=== PATIENT | female | born 1950 | race Caucasian/White ===

== ENCOUNTER 2017-08-18 19:30 | Outpatient (CLI) | payer MEDICARE | END 2017-08-18 19:31 | disposition home or self-care (01) | LOC: SLEEPLAB 19:30 | PROVIDERS: ATTEND Family Medicine | DX: G47.33 Obstructive sleep apnea (adult) (pediatric) (principal); F41.9 Anxiety disorder, unspecified; E11.9 Type 2 diabetes mellitus without complications; I10 Essential (primary) hypertension; R06.3 Periodic breathing | CPT/HCPCS: 95810 ==

== ENCOUNTER 2017-12-30 14:11 | Outpatient (CLI) | payer MEDICARE | END 2017-12-30 14:12 | disposition home or self-care (01) | LOC: BICMAMMO 14:11 | PROVIDERS: ATTEND Family Medicine | DX: Z12.31 Encounter for screening mammogram for malignant neoplasm of breast (principal); Z80.3 Family history of malignant neoplasm of breast | CPT/HCPCS: 77063; 77067 ==

== ENCOUNTER 2018-01-29 15:08 | Outpatient (CLI) | payer MEDICARE | END 2018-01-29 15:09 | disposition home or self-care (01) | LOC: BICMRI 15:08 | PROVIDERS: ATTEND Family Medicine | DX: M54.2 Cervicalgia (principal); M48.02 Spinal stenosis, cervical region; M99.81 Other biomechanical lesions of cervical region | CPT/HCPCS: 72141 ==

== ENCOUNTER 2018-02-05 12:57 | Outpatient (CLI) | payer MEDICARE | END 2018-02-05 12:58 | disposition home or self-care (01) | LOC: BICCT 12:57 | PROVIDERS: ATTEND Family Medicine | DX: R91.1 Solitary pulmonary nodule (principal) | CPT/HCPCS: 71250 ==

== ENCOUNTER 2018-03-08 09:25 | Outpatient (CLI) | payer MEDICARE ==
--- NOTE | 2018-03-08 12:12 | MRI ---
CONTRAST ENHANCED MRI CERVICAL SPINE: Date: 03/08/18 HISTORY: Abnormal mri COMPARISON: Noncontrast enhanced MRI cervical spine dated 01/29/18. TECHNIQUE: Multiplanar, multisequence contrast enhanced MRI cervical spine obtained. FINDINGS: Again, an area of signal abnormality is seen at the C5 vertebral level. The rest of the vertebral bod ies do not demonstrate significant degree of enhancement. No other masses or lesions seen. The lesion appears to be confined to the C5 vertebral body. Correlate with bone scan images, which are pending. I do not see definite evidence of other masses or lesions noted. IMPRESSION: No evidence of enhancement seen in the previously noted C5 vertebral body lesion. Correlate with bone scan images and possible follow-up MRI if clinically indicated. POS: [facility]
--- NOTE | 2018-03-08 13:53 | NM ---
BONE SCAN: HISTORY: Patient with abnormal noncontrast-enhanced MRI images cervical spine at C5 level. DOSE: 32.3 mCi of Technetium 99m-MDP. FINDINGS: Anterior and posterior whole body delayed images as well as lateral images cervical spine obtained. Images demonstrate the C5 vertebral body not to demonstrate any area of increased activity on delayed images to suggest an area of active metabolic turnover. This suggests that the C5 level likely is a benign lesion. I do recommend a repeat noncontrast-enhanced MRI of cervical spine in approximately 6 months to confirm stability. Some arthritic changes are seen in both knees. IMPRESSION: C5 level likely is a benign lesion as there is no significant evidence of activity on the bone scan elisa pires. POS: [facility]
== END 2018-03-08 09:26 | disposition home or self-care (01) ==
LOC: NM 09:25
PROVIDERS: ATTEND Family Medicine
DX: R93.8 Abnormal findings on diagnostic imaging of other specified body structures (principal)
CPT/HCPCS: 72142; 78306; 82565; A9503

== ENCOUNTER 2018-07-21 14:39 | Outpatient (CLI) | payer MEDICARE ==
--- NOTE | 2018-07-21 16:23 | BD ---
DEXA BONE DENSITOMETRY: (Dual energy X-ray Absorptiometry) 07/21/18 HISTORY: 68-year-old postmenopausal white female for age-related osteoporosis screening examination. Age of de nopausal 37 years. Height 64 inches. Weight 170 lb. COMPARISON: None available. FINDINGS: The bone mineral density (BMD) is given in grams per square centimeter (g/cm2): LUMBAR SPINE: BMD(g/cm2) T-score Z-score L1: 0.869 -1.1 0.5 L2: 0.899 -1.2 0.6 L3: 0.899 -1.7 0.2 L4: 0.836 -2.0 -0.1 Total: 0.875 -1.6 0.3 HIP: Femoral neck: 0.570 -2.5 -0.9 Total: 0.835 -0.9 0.4 IMPRESSION: 1) The mean bone mineral density of the lumbar spine is osteopenic. Fracture risk is increased. 2) The bone mineral density of the femoral neck is osteoporotic. Fracture risk is high. NORMA Raines POS: [facility]
== END 2018-07-21 14:40 | disposition home or self-care (01) ==
LOC: BICMAMMO 14:39
PROVIDERS: ATTEND Family Medicine
DX: Z13.820 Encounter for screening for osteoporosis (principal); M81.0 Age-related osteoporosis without current pathological fracture; M85.88 Other specified disorders of bone density and structure, other site
CPT/HCPCS: 77080

== ENCOUNTER 2018-08-07 13:33 | Emergency (ER) | payer MEDICARE ==
[2018-08-07] MEDS ORDERED: Adacel (T-DAP) 0.5 ML VIAL ONE (14:31)
[2018-08-07] MEDS ORDERED: Rabies Vaccine Human 2.5 UNITS VIAL IM ONE (15:30)
== END 2018-08-07 16:32 | disposition home or self-care (01) ==
LOC: ERS 13:33
DX: S30.810A Abrasion of lower back and pelvis, initial encounter (principal); E11.9 Type 2 diabetes mellitus without complications; I10 Essential (primary) hypertension; Z79.4 Long term (current) use of insulin; Z79.899 Other long term (current) drug therapy; W54.8XXA Other contact with dog, initial encounter
CPT/HCPCS: 90375; 90471; 90472; 90675; 90715; 96372

== ENCOUNTER → 2018-08-10 | Day surgery (SDC) | payer MEDICARE ==
[~2018-08-10] MED LIST: Rabies Vaccine Human 2.5 UNITS VIAL IM ONE
== END ==
LOC: ER/OP 13:55
DX: Z23 Encounter for immunization (principal); E11.9 Type 2 diabetes mellitus without complications; I10 Essential (primary) hypertension; K21.9 Gastro-esophageal reflux disease without esophagitis; E78.00 Pure hypercholesterolemia, unspecified; Z88.0 Allergy status to penicillin; Z88.2 Allergy status to sulfonamides; Z88.8 Allergy status to other drugs, medicaments and biological substances; Z79.4 Long term (current) use of insulin; Z79.899 Other long term (current) drug therapy
CPT/HCPCS: 90471; 90675

== ENCOUNTER → 2018-08-14 | Day surgery (SDC) | payer MEDICARE | LOC: ER/OP 20:34 | DX: Z23 Encounter for immunization (principal); K21.9 Gastro-esophageal reflux disease without esophagitis; E11.9 Type 2 diabetes mellitus without complications; E78.5 Hyperlipidemia, unspecified; E78.00 Pure hypercholesterolemia, unspecified; I10 Essential (primary) hypertension; Z79.4 Long term (current) use of insulin; Z79.899 Other long term (current) drug therapy; Z88.0 Allergy status to penicillin; Z88.1 Allergy status to other antibiotic agents; Z88.2 Allergy status to sulfonamides; Z88.5 Allergy status to narcotic agent; Z88.8 Allergy status to other drugs, medicaments and biological substances | CPT/HCPCS: 90471; 90675 ==

== ENCOUNTER 2018-10-13 09:02 | Outpatient (CLI) | payer MEDICARE ==
--- NOTE | 2018-10-13 13:22 | MRI ---
MRI NONCONTRAST ENHANCED CERVICAL SPINE: Date: 10-13-18 Comparison: 01-29-18 Technique: Multiplanar, multisequence noncontrast enhanced MRI images were obtained of the cervical s pine. FINDINGS: Images demonstrate the spinal cord to be unremarkable with no evidence of cord masses or lesions. C1-2: Unremarkable. C2-3: There is no evidence of significant central or neural foraminal narrowing. C3-4: There is a mild disc osteophyte complex compressing the thecal sac resulting in mild compressio n of the thecal sac. The neural foramen are patent. C4-5: Minimal right sided C4-5 uncal vertebral osteophyte hypertrophy seen. The central canal are pat ent. C5-6: There is a mild broad based disc bulge. The central canal and neural foramen are patent. C6-7: There is a mild broad based disc bulge compressing the thecal sac resulting in mild central guerline nosis. There is some moderate left C6-7 neural foraminal narrowing due to uncal vertebral osteophyte hypertrophy. The right neural foramen is patent. The area of signal abnormality seen within the C5 vertebral body remains. Signal characteristics are stable and unchanged with no significant growth. 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 Continue with follow up MRI to confirm stability. 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 POS: [facility]
== END 2018-10-13 09:03 | disposition home or self-care (01) ==
LOC: BICMRI 09:02
PROVIDERS: ATTEND Family Medicine
DX: R93.7 Abnormal findings on diagnostic imaging of other parts of musculoskeletal system (principal)
CPT/HCPCS: 72141

== ENCOUNTER 2019-02-28 11:43 | Outpatient (CLI) | payer MEDICARE ==
--- NOTE | 2019-02-28 13:15 | MMO ---
Bilateral MAMMO Bilat Screen [facility]. CLINICAL HISTORY: Patient is 68 years old and is seen for screening. The patient has the following family history of breast cancer: mother. The patient has no personal history of cancer. VIEWS: The views performed were: bilateral craniocaudal with tomosynthesis and bilateral mediolateral oblique with tomosynthesis. FILMS COMPARED: The present examination has been compared to prior imaging studies performed at [facility] on 01/09/2014, 05/08/2015, 07/01/2016 and 12/30/2017. MAMMOGRAM FINDINGS: There are scattered fibroglandular densities. There are stable benign appearing calcifications seen in both breasts. There are no suspicious masses, suspicious calcifications, or new areas of architectural distortion. IMPRESSION: THERE IS NO MAMMOGRAPHIC EVIDENCE OF MALIGNANCY. A ROUTINE FOLLOW-UP MAMMOGRAM IN 1 YEAR IS RECOMMENDED. THE RESULTS OF THIS EXAM WERE SENT TO THE PATIENT. ACR BI-RADS Category 2 - Benign finding MAMMOGRAPHY NOTE: 1. A negative mammogram report should not delay a biopsy if a dominant of clinically suspicious mass is present. 2. Approximately 10% to 15% of breast cancers are not detected by mammography. 3. Adenosis and dense breasts may obscure an underlying neoplasm.
--- NOTE | 2019-02-28 13:56 | CT ---
CT CHEST WITHOUT CONTRAST: Multiple axial tomograms were obtained through the chest without IV enhancement. INDICATION: Followup lung nodule. COMPARISON: Comparison is made to CT chest 02/05/2018 and 05/13/2017. FINDINGS: Mild pleural thickening in the posterior apical regions. Pleural-based nodular opacity in the early childhood ior left apical region shows a small nodular density measuring 5 mm. This is a stable finding. Left lung otherwise clear and unchanged. The subtle ground-glass opacity in the right lower lobe described on prior studies is again seen and is unchanged. A defined nodule is not identified at this location. No suspicious finding or interva l change. Mild stranding along the minor fissure on the right is stable. A small focal area of bronchiectasis in the right apical region is unchanged. Mediastinum shows nonspecific lymph nodes which are stable in appearance. Images through the upper a bdomen are unremarkable. IMPRESSION: The chest findings are stable from prior exam of 02/05/2018. POS: [facility]
== END 2019-02-28 11:44 | disposition home or self-care (01) ==
LOC: BICCT 11:43
PROVIDERS: ATTEND Family Medicine
DX: Z12.31 Encounter for screening mammogram for malignant neoplasm of breast (principal); R91.1 Solitary pulmonary nodule; Z80.3 Family history of malignant neoplasm of breast
CPT/HCPCS: 71250; 77063; 77067

== ENCOUNTER 2019-08-30 07:58 | Outpatient (CLI) | payer MEDICARE ==
--- NOTE | 2019-08-30 09:30 | ULT ---
ULTRASOUND ABDOMEN LIMITED: (RIGHT UPPER QUADRANT) DATE: 08/30/19 TIME: 0817 hours HISTORY: 69-year-old female with elevated liver enzymes. FINDINGS: Gallbladder: Surgically absent. Common duct: 5 mm. Liver: Diffusely increased parenchymal echogenicity and signal dropout in the deep portions. Enlarged . Pancreas: Nonspecific sonographic appearance. Right kidney: No hydronephrosis. IMPRESSION: 1. Hepatic steatosis. 2. Hepatomegaly. 3. Status post cholecystectomy. NORMA Raines POS: [facility]
== END 2019-08-30 07:59 | disposition home or self-care (01) ==
LOC: BICULT 07:58
PROVIDERS: ATTEND Family Medicine
DX: R74.8 Abnormal levels of other serum enzymes (principal); R16.0 Hepatomegaly, not elsewhere classified; K76.0 Fatty (change of) liver, not elsewhere classified; Z90.49 Acquired absence of other specified parts of digestive tract
CPT/HCPCS: 76705

== ENCOUNTER 2021-05-09 12:45 | Outpatient (CLI) | payer MEDICARE | END 2021-05-09 12:46 | disposition home or self-care (01) | LOC: BICMRI 12:45 | PROVIDERS: ATTEND Nurse Practitioner Family | DX: M47.26 Other spondylosis with radiculopathy, lumbar region (principal); M47.27 Other spondylosis with radiculopathy, lumbosacral region; M48.061 Spinal stenosis, lumbar region without neurogenic claudication; M48.07 Spinal stenosis, lumbosacral region | CPT/HCPCS: 72148 ==

== ENCOUNTER 2022-02-28 11:59 | Outpatient (CLI) | payer MEDICARE | END 2022-02-28 12:00 | disposition home or self-care (01) | LOC: BICMRI 11:59 | PROVIDERS: ATTEND Family Medicine | DX: M25.511 Pain in right shoulder (principal); M25.619 Stiffness of unspecified shoulder, not elsewhere classified; M71.9 Bursopathy, unspecified; M75.101 Unspecified rotator cuff tear or rupture of right shoulder, not specified as traumatic ==

== ENCOUNTER 2022-07-01 10:54 | Outpatient (CLI) | payer MEDICARE, OTHER ==
[2022-07-01 13:13] LABS: Hemoglobin 13.6 g/dL (12.0-15.5); Mean Corpuscular HGB CONC 33.7 g/dL (32.0-36.0); Mean Corpuscular Volume 91.8 fl (81.6-98.3); Mean Platelet Volume 12.3 fl (7.4-10.4); Platelet Count 195 10x3/uL (150-450); RBC Distribution Width 13.6 % (11.5-14.5); Red Blood Cell (RBC) Count 4.39 10x6/uL (3.90-5.03)
[2022-07-01 13:22] LABS: INR-International Normal Ratio 1.2; PTT 25.7 sec (22.0-33.0); Prothrombin Time 12.4 sec (9.5-12.1)
[2022-07-01 13:27] LABS: Anion Gap 17 mmol/L (10-20); BUN (Urea Nitrogen) 19 mg/dL (9.8-20.1); Calc. Creatinine Clearance 0 mL/min (70-130); Calcium 9.3 mg/dL (7.8-10.44); Carbon Dioxide 21 mmol/L (23-31); Chloride 106 mmol/L (98-107); Estimated GFR 74; Glucose 121 mg/dL (80-115); Potassium 5.1 mmol/L (3.5-5.1); Sodium 139 mmol/L (136-145)
== END 2022-07-01 10:55 | disposition home or self-care (01) ==
LOC: LABBT 10:54
PROVIDERS: ATTEND Internal Medicine Cardiovascular Disease
DX: Z01.812 Encounter for preprocedural laboratory examination (principal); Z20.822 Contact with and (suspected) exposure to COVID-19
CPT/HCPCS: 80048; 85027; 85610; 85730; 87811

== ENCOUNTER 2022-07-31 05:37 | Day surgery (SDC) | payer MEDICARE ==
[2022-07-30 09:31] VITALS: BMI 32.5
[2022-07-31] MEDS ORDERED: PROPOFOL 20 ML ONE (06:53)
== END 2022-07-31 08:38 | disposition home or self-care (01) ==
LOC: SDC 05:37
PROVIDERS: ATTEND Internal Medicine Cardiovascular Disease
PROC: 5A2204Z Restoration of Cardiac Rhythm, Single (ICD-10-PCS; principal; 2022-07-31)
DX: I48.0 Paroxysmal atrial fibrillation (principal); I48.3 Typical atrial flutter; I08.1 Rheumatic disorders of both mitral and tricuspid valves; I10 Essential (primary) hypertension; E11.9 Type 2 diabetes mellitus without complications; F17.210 Nicotine dependence, cigarettes, uncomplicated; Z79.01 Long term (current) use of anticoagulants; Z79.4 Long term (current) use of insulin; Z79.899 Other long term (current) drug therapy; Z88.0 Allergy status to penicillin; Z88.1 Allergy status to other antibiotic agents; Z88.2 Allergy status to sulfonamides; Z88.5 Allergy status to narcotic agent; Z88.8 Allergy status to other drugs, medicaments and biological substances
CPT/HCPCS: 92960; 93005; 93010; J2704

== ENCOUNTER 2022-09-24 05:43 | Day surgery (SDC) | payer MEDICARE ==
[2022-09-23 09:25] VITALS: BMI 30.9
[2022-09-24] MEDS ORDERED: Protamine Sulfate 50 MG/5 ML VIAL ONE (07:31)
[2022-09-24] MEDS ORDERED: Isoproterenol 0.2 MG/1 ML AMP ONE (07:31)
[2022-09-24] MEDS ORDERED: Heparin 10,000 UNITS/ 10 ML VIAL ONE (07:31)
[2022-09-24] MEDS ORDERED: Heparin 25,000 units/D5W 500 ML ONE (07:31)
[2022-09-24] MEDS ORDERED: FENTANYL 50 MCG/ML 1 ML VIAL ONE ×2 (07:47→10:37)
[2022-09-24] MEDS ORDERED: Midazolam HCl 2 mg/2 ml Vial ONE (07:48)
[2022-09-24] MEDS ORDERED: Glycopyrrolate 0.2 MG/ML 5 ML SYRINGE ONE (07:51)
[2022-09-24] MEDS ORDERED: PHENYLEPHRINE-NS 100 MCG/ML 10 ML SYRINGE ONE (07:51)
[2022-09-24] MEDS ORDERED: Ondansetron PF 4 MG/2 ML Vial ONE (07:51)
[2022-09-24] MEDS ORDERED: PROPOFOL 200 MG/20 ML VIAL ONE (07:51)
[2022-09-24] MEDS ORDERED: Dexamethasone 20 MG/5 ML VIAL ONE (07:51)
[2022-09-24] MEDS ORDERED: Rocuronium Bromide 10 MG/ML (10ML VIAL) ONE (07:51)
[2022-09-24] MEDS ORDERED: NEOSTIGMINE 3 MG/3 ML SYR 3 MG/3 ML SYRINGE ONE (07:51)
[2022-09-24] MEDS ORDERED: Furosemide 40 MG TAB PO PRN (07:53)
[2022-09-24] MEDS ORDERED: Potassium Chloride 20 MEQ TAB PO PRN (07:53)
[2022-09-24] MEDS ORDERED: Meperidine HCl/PF 25 MG/ML VIAL ONE (11:28)
[2022-09-24] MEDS ORDERED: Sucralfate 1 GM TAB PO SCH (11:30)
== END 2022-09-24 16:00 | disposition home or self-care (01) ==
LOC: SDC 05:43
PROVIDERS: ATTEND Internal Medicine Cardiovascular Disease
PROC: B244ZZ3 Ultrasonography of Right Heart, Intravascular (ICD-10-PCS; principal; 2022-09-24)
PROC: 02583ZZ Destruction of Conduction Mechanism, Percutaneous Approach (ICD-10-PCS; 2022-09-24)
PROC: 02K83ZZ Map Conduction Mechanism, Percutaneous Approach (ICD-10-PCS; 2022-09-24)
PROC: 4A023FZ Measurement of Cardiac Rhythm, Percutaneous Approach (ICD-10-PCS; 2022-09-24)
PROC: 4A0234Z Measurement of Cardiac Electrical Activity, Percutaneous Approach (ICD-10-PCS; 2022-09-24)
DX: I48.0 Paroxysmal atrial fibrillation (principal); J44.9 Chronic obstructive pulmonary disease, unspecified; I08.1 Rheumatic disorders of both mitral and tricuspid valves; I10 Essential (primary) hypertension; E11.9 Type 2 diabetes mellitus without complications; F17.210 Nicotine dependence, cigarettes, uncomplicated; Z79.01 Long term (current) use of anticoagulants; Z79.4 Long term (current) use of insulin; Z79.899 Other long term (current) drug therapy; Z88.0 Allergy status to penicillin; Z88.1 Allergy status to other antibiotic agents; Z88.2 Allergy status to sulfonamides; Z88.5 Allergy status to narcotic agent; Z88.8 Allergy status to other drugs, medicaments and biological substances
CPT/HCPCS: 82962; 85347 ×2; 93005; 93623; 93655; 93656; J3010; 36416; 93657; C1732; C1759; C1760; C1769; C1894; J1100; J1644; J2175; J2250; J2405; J2704; J2720

== ENCOUNTER 2022-10-07 11:36 | Emergency (ER) | payer MEDICARE ==
[2022-10-07 12:04] LABS: #Basophils 0.1 thou/uL (0.0-0.2); #Eosinphils 0.1 thou/uL (0.0-0.7); #Monocytes 0.6 thou/uL (0.11-0.59); #Neutrophils 7.7 thou/uL (1.40-6.50); %Basophils 0.7 % (0.0-1.0); %Eosinophils 0.8 % (0.0-10.0); %Monocytes 5.5 % (0.0-10.0); Hemoglobin 15.1 g/dL (12.0-16.0); Mean Corpuscular HGB CONC 32.5 g/dL (32.0-36.0); Mean Corpuscular Hemoglobin 30.3 pg (27.0-31.0); Mean Corpuscular Volume 93.4 fl (78.0-98.0); Mean Platelet Volume 9.4 fL (7.4-10.4); Platelet Count 214 10x3/uL (130-400); RBC Distribution Width 12.9 % (11.5-14.5); Red Blood Cell (RBC) Count 4.98 mill/uL (4.20-5.40); White Blood Cell (WBC) Count 11.4 10x3/uL (4.8-10.8)
[2022-10-07 12:28] LABS: ALT (SGPT) 14 U/L (8-55); AST (SGOT) 15 U/L (5-34); Albumin 4.1 g/dL (3.4-4.8); Alkaline Phosphatase 54 U/L (40-110); Anion Gap 16 mmol/L (10-20); BUN (Urea Nitrogen) 14 mg/dL (9.8-20.1); Bilirubin, Total 0.6 mg/dL (0.2-1.2); Calc. Creatinine Clearance 0 mL/min (70-130); Calcium 9.2 mg/dL (7.8-10.44); Carbon Dioxide 21 mmol/L (23-31); Chloride 103 mmol/L (98-107); Estimated GFR 73; Glucose 241 mg/dL (80-115); Lipase 24 U/L (8-78); Potassium 4.1 mmol/L (3.5-5.1); Protein, Total 7.1 g/dL (5.8-8.1); Sodium 136 mmol/L (136-145)
[2022-10-07] MEDS ORDERED: Flecainide 50 MG TAB PO SCH (12:45)
[2022-10-07 12:47] LABS: CKMB 5.6 ng/mL (0-6.6)
[2022-10-07] MEDS ORDERED: Aspirin Chewable 81 MG TAB ONE (12:55)
[2022-10-07] MEDS ORDERED: Iopamidol-370 76% 500 ML 1 ML ONE (13:08)
[2022-10-07] MEDS ORDERED: PROPOFOL 20 ML ONE (15:00)
== END 2022-10-07 16:00 | disposition home or self-care (01) ==
LOC: ERS 11:36
DX: I48.92 Unspecified atrial flutter (principal); E11.9 Type 2 diabetes mellitus without complications; I10 Essential (primary) hypertension; F17.200 Nicotine dependence, unspecified, uncomplicated; Z79.01 Long term (current) use of anticoagulants; Z79.4 Long term (current) use of insulin
CPT/HCPCS: 71045; 74177; 80053; 82553; 83690; 84484; 85025; 92960; 93005; 96374; 99152; J2704; Q9967

== ENCOUNTER 2023-04-05 19:30 | Outpatient (CLI) | payer MEDICARE | END 2023-04-05 19:31 | disposition home or self-care (01) | LOC: SLEEPLAB 19:30 | PROVIDERS: ATTEND Internal Medicine Critical Care Medicine | DX: G47.33 Obstructive sleep apnea (adult) (pediatric) (principal); G47.61 Periodic limb movement disorder; R06.83 Snoring | CPT/HCPCS: 95810 ==

== ENCOUNTER 2023-10-26 10:54 | Outpatient (CLI) | payer MEDICARE | END 2023-10-26 10:55 | disposition home or self-care (01) | LOC: BICMAMMO 10:54 | PROVIDERS: ATTEND Family Medicine | DX: Z12.31 Encounter for screening mammogram for malignant neoplasm of breast (principal); Z80.3 Family history of malignant neoplasm of breast | CPT/HCPCS: 77063; 77067 ==

== ENCOUNTER 2024-10-14 13:46 | Inpatient (IN) | payer MEDICARE ==
[2024-10-14] MEDS ORDERED: Morphine 2 MG/ML VIAL ONE ×2 (17:10→22:22)
[2024-10-14] MEDS ORDERED: Ondansetron PF 4 MG/2 ML Vial ONE (17:11)
[2024-10-14] MEDS ORDERED: LORazepam 2 MG/ML SYR.(CARPUJECT) ONE (17:11)
[2024-10-14 17:13] LABS: Hematocrit 35.4 % (36.0-47.0); Hemoglobin 11.3 g/dL (12.0-16.0); Mean Corpuscular HGB CONC 31.9 g/dL (32.0-36.0); Mean Corpuscular Hemoglobin 23.1 pg (27.0-31.0); Mean Corpuscular Volume 72.2 fL (78.0-98.0); Mean Platelet Volume 9.8 fL (7.4-10.4); Platelet Count 349 10x3/uL (130-400); RBC Distribution Width 18.5 % (11.5-14.5)
[2024-10-14 17:28] LABS: INR-International Normal Ratio 1.3; Prothrombin Time 16.5 sec (12.0-14.7)
[2024-10-14 17:29] LABS: ALT (SGPT) 14 U/L (Less than 34); AST (SGOT) 30 U/L (11-34); Albumin 3.4 g/dL (3.1-4.5); Alkaline Phosphatase 63 U/L (40-110); Anion Gap 21 mmol/L (10-20); BUN (Urea Nitrogen) 6 mg/dL (9.8-20.1); Bilirubin, Total 0.6 mg/dL (0.3-1.2); Calc. Creatinine Clearance 0 mL/min (70-130); Calcium 7.9 mg/dL (7.8-10.44); Carbon Dioxide 19 mmol/L (23-31); Chloride 99 mmol/L (98-107); Estimated GFR 83; Glucose 156 mg/dL (83-110); Lipase 34 U/L (8-78); PTT 34.3 sec (22.9-36.1); Potassium 3.8 mmol/L (3.5-5.1); Protein, Total 7.1 g/dL (5.8-8.1); Sodium 135 mmol/L (136-145)
[2024-10-14 17:35] LABS: Globulin 3.7 g/dL (2.4-3.5)
[2024-10-14 17:44] LABS: Anisocytosis SLIGHT = 6-15 cells HPF (0-5); Band 6 % (5-11); Large Platelets 8.9 % (0-5); Lymphocytes 6 % (21-51); Microcytosis SLIGHT = 6-15 cells HPF (0-5); Monocytes 1 % (0-10); Neutrophil 86 % (42-75); Platelet Adequacy Comment Platelets Normal; Polychromasia SLIGHT = 2-3 cells HPF (0-2); RBC Morphology Within Normal Limits; Reactive Lymphocytes 1 % (0-10)
[2024-10-14 20:22] LABS: Actual Bicarbonate (HCO3v) 17.6 mEq/L (22-28); Base Excess -7.3 mEq/L (-2.0 to +3.0); Calcium, Ionized (venous) 0.96 mmol/L (1.16-1.32); Chloride (VBG) 97 mmol/L (98-106); Hematocrit-VBG 36 % (36.0-47.0); Hemoglobin (Hb) 12.3 g/dL (11.7-16.1); Potassium (VBG) 3.42 mmol/L (3.70-5.30); Sodium 135 mmol/L (133-146); pH (venous) 7.339 (7.32-7.43)
[2024-10-14] MEDS ORDERED: Ondansetron PF 4 MG/2 ML Vial IVP PRN (22:00)
[2024-10-14 22:53] LABS: Lactic Acid 3.21 mmol/L (0.50-2.20)
[2024-10-14 22:58] LABS: Troponin I 0.068 ng/mL (< 0.028)
[2024-10-15] MEDS: LevoFLOXacin 750 mg/D5W 750 MG in Premix 1 BAG IVPB SCH (00:04)
[2024-10-15] MEDS: Acetaminophen 325 MG TAB PO PRN ×2 (00:06→16:37)
[2024-10-15] MEDS: HYDROcodone/Acetaminophen 10/325 mg Tablet PO SCH (00:06)
[2024-10-15] MEDS: Sodium Chloride 0.9% 1,000 ML IV SCH (00:07)
[2024-10-15] MEDS: Vancomycin (BATCH) 1.75 GM in Premix 1 BAG IVPB SCH (00:07)
[2024-10-15 02:01] LABS: Troponin I 0.044 ng/mL (< 0.028)
[2024-10-15 02:56] VITALS: BMI 27.8
[2024-10-15] MEDS ORDERED: Acetaminophen 650 MG Suppository PR PRN (03:27)
[2024-10-15] MEDS ORDERED: Calcium Carbonate 500 MG ChewTAB PO PRN (03:27)
[2024-10-15 04:49] LABS: #Basophils Less than 0.03 10x3/uL (0.0-0.2); #Eosinophils Less than 0.03 10x3/uL (0.0-0.7); %Basophils 0.2 % (0.0-1.0); %Eosinophils 0.2 % (0.0-10.0); %Monocytes 5.7 % (0.0-10.0); %Neutrophils 82.4 % (42.0-75.0); Hematocrit 31.9 % (36.0-47.0); Hemoglobin 10.1 g/dL (12.0-16.0); Mean Corpuscular HGB CONC 31.7 g/dL (32.0-36.0); Mean Corpuscular Hemoglobin 23.3 pg (27.0-31.0); Mean Corpuscular Volume 73.7 fL (78.0-98.0); Mean Platelet Volume 10.7 fL (7.4-10.4); Platelet Count 290 10x3/uL (130-400); RBC Distribution Width 18.4 % (11.5-14.5); Red Blood Cell (RBC) Count 4.33 mill/uL (4.20-5.40)
[2024-10-15 05:51] LABS: ALT (SGPT) 12 U/L (Less than 34); AST (SGOT) 25 U/L (11-34); Albumin 2.9 g/dL (3.1-4.5); Alkaline Phosphatase 55 U/L (40-110); Anion Gap 14 mmol/L (10-20); BUN (Urea Nitrogen) 6 mg/dL (9.8-20.1); Bilirubin, Total 0.6 mg/dL (0.3-1.2); Calc. Creatinine Clearance 85 mL/min (70-130); Calcium 7.1 mg/dL (7.8-10.44); Carbon Dioxide 19 mmol/L (23-31); Chloride 104 mmol/L (98-107); Estimated GFR 92; Globulin 3.1 g/dL (2.4-3.5); Glucose 159 mg/dL (83-110); Potassium 3.4 mmol/L (3.5-5.1); Sodium 134 mmol/L (136-145)
[2024-10-15 06:22] LABS: Bilirubin Negative (Negative); Blood, Urine Trace (Negative); CAUTI Indications for Culture Fever or rigors; Clarity Turbid (Clear); Glucose, Urine (Dipstick) Normal (Negative); Ketone, Urine Negative (Negative); Leukocyte 500 Leu/uL (Negative); Nitrite 2+ (Negative); Protein, Urine (Dipstick) 10 mg/dL (Neg-Trace); RBC/HPF 0-3 HPF (0-3); Squamous Epithelial 0-3 HPF (0-3); Urobilinogen Normal mg/dL (Less than 2); WBC/HPF Greater than 50 HPF (0-3)
[2024-10-15 06:23] LABS: Bacteria/HPF 1+ HPF (None Seen)
[2024-10-15 06:24] LABS: Urine Culture Reflex Yes Yes
[2024-10-15] MEDS ORDERED: Electrolyte Replacement Protocol 1 EACH FS SCH (08:15)
[2024-10-15] MEDS ORDERED: Electrolyte Replacement Protocol FS PRN (08:15)
[2024-10-15] MEDS ORDERED: Famotidine/PF 20 mg/2ml Vial SLOW IVP SCH (09:00)
[2024-10-15] MEDS ORDERED: FLU (Fluad Triv) TS24-25 (65UP)/MF59C/PF 45 MCG/0.5 ML Syringe IM ONE (09:00)
[2024-10-15] MEDS: Aspirin 325 mg Enteric Coated Tablet PO SCH (09:51)
[2024-10-15] MEDS: Apixaban 5 MG TAB PO SCH (09:51)
[2024-10-15] MEDS: Cefepime 1 GM in Sodium Chloride 0.9% 100 ML IVPB SCH (09:51)
[2024-10-15] MEDS: dilTIAZem CD 180 MG CAP PO SCH (09:51)
[2024-10-15] MEDS: Potassium Chloride 20 MEQ TAB PO SCH (10:04)
[2024-10-15] MEDS: Famotidine 20 MG TAB PO SCH (10:04)
[2024-10-15] MEDS: Morphine 4 MG/ML VIAL SLOW IVP PRN (11:17)
[2024-10-15] MEDS: Ondansetron ODT 4 MG TAB SL PRN (11:18)
[2024-10-15] MEDS: Metoclopramide HCl 10 MG (2 mL) VIAL IVP SCH (16:37)
[2024-10-15] MEDS: ALPRAZolam 0.25 MG TAB PO PRN (20:11)
[2024-10-16] MEDS: Lidocaine 4% Patch TD SCH (03:31)
[2024-10-16 05:18] LABS: #Basophils 0.07 10x3/uL (0.0-0.2); %Basophils 0.7 % (0.0-1.0); %Eosinophils 1.7 % (0.0-10.0); %Lymphocytes 13.4 % (21.0-51.0); %Monocytes 7.5 % (0.0-10.0); %Neutrophils 76.3 % (42.0-75.0); Hematocrit 29.4 % (36.0-47.0); Hemoglobin 9.2 g/dL (12.0-16.0); Mean Corpuscular HGB CONC 31.3 g/dL (32.0-36.0); Mean Corpuscular Hemoglobin 23.6 pg (27.0-31.0); Mean Corpuscular Volume 75.4 fL (78.0-98.0); Mean Platelet Volume 10.1 fL (7.4-10.4); Platelet Count 251 10x3/uL (130-400); RBC Distribution Width 18.6 % (11.5-14.5)
[2024-10-16 07:26] LABS: Anion Gap 15 mmol/L (10-20); BUN (Urea Nitrogen) 8 mg/dL (9.8-20.1); Calc. Creatinine Clearance 83 mL/min (70-130); Calcium 6.9 mg/dL (7.8-10.44); Carbon Dioxide 16 mmol/L (23-31); Chloride 103 mmol/L (98-107); Critical Call Chemistry SAME; Estimated GFR 90; Glucose 180 mg/dL (83-110); Potassium 3.4 mmol/L (3.5-5.1); Sodium 131 mmol/L (136-145)
[2024-10-16] MEDS: Pantoprazole 40 MG DR.TAB PO SCH (08:10)
[2024-10-16] MEDS: Cefepime 1 GM VIAL ONE (08:12)
[2024-10-16] MEDS ORDERED: Morphine 2 MG/ML VIAL SLOW IVP PRN (10:05)
[2024-10-16] MEDS: HYDROcodone/Acetaminophen 5/325 mg Tablet PO SCH (11:39)
[2024-10-16] MEDS: Potassium Chloride 20 MEQ TAB PO SCH (11:39)
[2024-10-16] MEDS: CALCIUM GLUC 1 GM/NS 50 ML 1 GM in Premix 1 BAG IVPB SCH (11:40)
[2024-10-16] MEDS: traMADol HCl 50 MG TAB PO PRN (16:10)
[2024-10-16] MEDS: Transdermal Patch Removal TOP SCH (16:10)
[2024-10-16] MEDS: HYDROcodone/Acetaminophen 5/325 mg Tablet PO PRN (17:02)
[2024-10-16 17:41] LABS: Potassium 3.8 mmol/L (3.5-5.1)
[2024-10-17 05:00] LABS: Anion Gap 15 mmol/L (10-20); BUN (Urea Nitrogen) 6 mg/dL (9.8-20.1); Calc. Creatinine Clearance 88 mL/min (70-130); Calcium 7.2 mg/dL (7.8-10.44); Carbon Dioxide 16 mmol/L (23-31); Chloride 103 mmol/L (98-107); Estimated GFR 93; Glucose 151 mg/dL (83-110); Potassium 3.8 mmol/L (3.5-5.1); Sodium 130 mmol/L (136-145)
[2024-10-17 05:11] LABS: #Basophils 0.06 10x3/uL (0.0-0.2); %Basophils 0.5 % (0.0-1.0); %Eosinophils 2.1 % (0.0-10.0); %Lymphocytes 19.6 % (21.0-51.0); %Monocytes 8.4 % (0.0-10.0); %Neutrophils 68.9 % (42.0-75.0); Hematocrit 32.7 % (36.0-47.0); Hemoglobin 10.3 g/dL (12.0-16.0); Mean Corpuscular HGB CONC 31.5 g/dL (32.0-36.0); Mean Corpuscular Hemoglobin 23.3 pg (27.0-31.0); Platelet Count 297 10x3/uL (130-400); RBC Distribution Width 18.7 % (11.5-14.5); Red Blood Cell (RBC) Count 4.42 mill/uL (4.20-5.40)
[2024-10-17] MEDS ORDERED: Cefepime 2 GM in Sodium Chloride 0.9% 100 ML IVPB SCH (21:00)
[2024-10-18 05:40] LABS: %Basophils 0.9 % (0.0-1.0); %Eosinophils 2.2 % (0.0-10.0); %Lymphocytes 25.6 % (21.0-51.0); %Neutrophils 60.8 % (42.0-75.0); Hematocrit 31.2 % (36.0-47.0); Hemoglobin 9.9 g/dL (12.0-16.0); Mean Corpuscular HGB CONC 31.7 g/dL (32.0-36.0); Mean Corpuscular Hemoglobin 23.5 pg (27.0-31.0); Mean Corpuscular Volume 73.9 fL (78.0-98.0); Mean Platelet Volume 10.5 fL (7.4-10.4); Platelet Count 304 10x3/uL (130-400); RBC Distribution Width 19.2 % (11.5-14.5); Red Blood Cell (RBC) Count 4.22 mill/uL (4.20-5.40)
[2024-10-18 06:01] LABS: Anion Gap 18 mmol/L (10-20); BUN (Urea Nitrogen) 11 mg/dL (9.8-20.1); Calc. Creatinine Clearance 70 mL/min (70-130); Calcium 7.4 mg/dL (7.8-10.44); Carbon Dioxide 17 mmol/L (23-31); Chloride 102 mmol/L (98-107); Estimated GFR 74; Glucose 161 mg/dL (83-110); Potassium 4.3 mmol/L (3.5-5.1); Sodium 133 mmol/L (136-145)
[2024-10-18 11:36] VITALS: BP 112/76; TEMP 97.6
[2024-10-19] MEDS ORDERED: dilTIAZem CD 180 MG CAP PO SCH (09:00)
== END 2024-10-18 15:31 | DRG 871 ==
LOC: ERS 13:46 → 2NO 21:50 → SURG A 10-17 19:48
PROVIDERS: ADMIT Student in an Organized Health Care Education/Training Program; ATTEND Internal Medicine
DX: A41.9 Sepsis, unspecified organism (principal); I21.A1 Myocardial infarction type 2; S72.102A Unspecified trochanteric fracture of left femur, initial encounter for closed fracture; N39.0 Urinary tract infection, site not specified; E87.1 Hypo-osmolality and hyponatremia; E11.9 Type 2 diabetes mellitus without complications; I48.91 Unspecified atrial fibrillation; I10 Essential (primary) hypertension; F17.210 Nicotine dependence, cigarettes, uncomplicated; Z88.0 Allergy status to penicillin; Z88.2 Allergy status to sulfonamides; Z88.5 Allergy status to narcotic agent; Z88.8 Allergy status to other drugs, medicaments and biological substances; Z90.89 Acquired absence of other organs; Z90.49 Acquired absence of other specified parts of digestive tract; Z90.710 Acquired absence of both cervix and uterus; W19.XXXA Unspecified fall, initial encounter
CPT/HCPCS: 36415; 36416; 70450; 71045; 72125; 72192; 80048; 80053; 81001; 82805; 83605; 83690; 84484; 85025; 85610; 85730; 87040; 87086; 93005; J0613; J0692; J1956; J2060; J2270; J2272; J2405; J2765; J3370; Q0162

== ENCOUNTER 2024-11-11 12:01 | Emergency (ER) | payer MEDICARE ==
[2024-11-11] MEDS ORDERED: Magnesium 2 GM/50 ML BAG (IN WATER) ONE (13:25)
[2024-11-11] MEDS ORDERED: Etomidate 40 MG (20 mL) VIAL ONE (13:55)
== END 2024-11-11 15:28 | disposition home or self-care (01) ==
LOC: ERS 12:01
DX: I48.91 Unspecified atrial fibrillation (principal); I10 Essential (primary) hypertension; F17.210 Nicotine dependence, cigarettes, uncomplicated; E11.9 Type 2 diabetes mellitus without complications; Z79.01 Long term (current) use of anticoagulants; Z79.899 Other long term (current) drug therapy
CPT/HCPCS: 93005; J3475; 92960; 96374; 99156

== ENCOUNTER 2025-04-25 18:51 | Observation (INO) | payer MEDICARE ==
[2025-04-25 19:45] LABS: #Basophils 0.07 10x3/uL (0.0-0.2); #Eosinophils 0.13 10x3/uL (0.0-0.7); #Monocytes 0.99 10x3/uL (0.11-0.59); #Neutrophils 7.13 10x3/uL (1.40-6.50); %Basophils 0.6 % (0.0-1.0); %Eosinophils 1.1 % (0.0-10.0); %Lymphocytes 26.8 % (21.0-51.0); %Monocytes 8.7 % (0.0-10.0); %Neutrophils 62.5 % (42.0-75.0); Hematocrit 43.2 % (36.0-47.0); Hemoglobin 14.0 g/dL (12.0-16.0); Mean Corpuscular Hemoglobin 25.0 pg (27.0-31.0); Mean Corpuscular Volume 77.0 fL (78.0-98.0); Platelet Count 309 10x3/uL (130-400); Red Blood Cell (RBC) Count 5.61 mill/uL (4.20-5.40); White Blood Cell (WBC) Count 11.40 10x3/uL (4.8-10.8)
[2025-04-25 20:03] LABS: ALT (SGPT) 15 U/L (Less than 34); AST (SGOT) 23 U/L (11-34); Albumin 3.7 g/dL (3.1-4.5); Alkaline Phosphatase 66 U/L (40-110); Anion Gap 15 mmol/L (10-20); BUN (Urea Nitrogen) 9 mg/dL (9.8-20.1); Bilirubin, Total 0.8 mg/dL (0.3-1.2); Calc. Creatinine Clearance 0 mL/min (70-130); Calcium 8.8 mg/dL (7.8-10.44); Carbon Dioxide 21 mmol/L (23-31); Chloride 98 mmol/L (98-107); Globulin 3.2 g/dL (2.4-3.5); Glucose 132 mg/dL (83-110); Potassium 3.8 mmol/L (3.5-5.1); Sodium 130 mmol/L (136-145)
[2025-04-25 20:07] LABS: Troponin I 0.023 ng/mL (< 0.028)
[2025-04-25 20:27] LABS: Magnesium 0.8 mg/dL (1.6-2.6)
[2025-04-25] MEDS ORDERED: Magnesium 2 GM/50 ML BAG (IN WATER) ONE (21:01)
[2025-04-25] MEDS ORDERED: Apixaban 5 MG TAB ONE (21:09)
[2025-04-25] MEDS ORDERED: diphenhydrAMINE 50 MG/ML VIAL ONE (21:17)
[2025-04-25] MEDS ORDERED: Guaifenesin DM 100-10/5 ML UDCUP PO PRN (21:35)
[2025-04-25] MEDS ORDERED: Ondansetron PF 4 MG/2 ML Vial IVP PRN (21:35)
[2025-04-25] MEDS ORDERED: Melatonin 3 MG TAB PO PRN (21:35)
[2025-04-25] MEDS ORDERED: Acetaminophen 325 MG TAB PO PRN (21:35)
[2025-04-25] MEDS ORDERED: Electrolyte Replacement Protocol 1 EACH FS SCH (21:45)
[2025-04-25] MEDS ORDERED: Glucagon 1 MG/ML KIT IM PRN (22:17)
[2025-04-25] MEDS ORDERED: Dextrose 50% Abboject 50 ML SYRINGE SLOW IVP PRN (22:17)
[2025-04-25 22:53] VITALS: BMI 25.4
[2025-04-25] MEDS: Magnesium Oxide 400 MG TAB PO SCH (22:57)
[2025-04-26 01:22] LABS: Magnesium 1.4 mg/dL (1.6-2.6)
[2025-04-26 04:43] LABS: #Basophils 0.07 10x3/uL (0.0-0.2); #Eosinophils 0.24 10x3/uL (0.0-0.7); #Monocytes 1.10 10x3/uL (0.11-0.59); #Neutrophils 5.69 10x3/uL (1.40-6.50); %Basophils 0.7 % (0.0-1.0); %Eosinophils 2.4 % (0.0-10.0); %Lymphocytes 27.9 % (21.0-51.0); %Monocytes 11.1 % (0.0-10.0); %Neutrophils 57.7 % (42.0-75.0); Hematocrit 40.0 % (36.0-47.0); Hemoglobin 12.8 g/dL (12.0-16.0); Mean Corpuscular Hemoglobin 25.1 pg (27.0-31.0); Mean Corpuscular Volume 78.6 fL (78.0-98.0); Platelet Count 249 10x3/uL (130-400); Red Blood Cell (RBC) Count 5.09 mill/uL (4.20-5.40); White Blood Cell (WBC) Count 9.87 10x3/uL (4.8-10.8)
[2025-04-26 04:53] LABS: ALT (SGPT) 12 U/L (Less than 34); AST (SGOT) 24 U/L (11-34); Albumin 3.2 g/dL (3.1-4.5); Alkaline Phosphatase 58 U/L (40-110); Anion Gap 13 mmol/L (10-20); BUN (Urea Nitrogen) 8 mg/dL (9.8-20.1); Bilirubin, Total 0.8 mg/dL (0.3-1.2); Calc. Creatinine Clearance 76 mL/min (70-130); Calcium 8.7 mg/dL (7.8-10.44); Carbon Dioxide 26 mmol/L (23-31); Chloride 97 mmol/L (98-107); Globulin 2.8 g/dL (2.4-3.5); Glucose 119 mg/dL (83-110); Potassium 4.4 mmol/L (3.5-5.1); Sodium 132 mmol/L (136-145)
[2025-04-26] MEDS ORDERED: Pantoprazole 40 MG DR.TAB PO SCH (09:00)
[2025-04-26] MEDS: Famotidine/PF 20 mg/2ml Vial SLOW IVP SCH (09:02)
[2025-04-26] MEDS: Magnesium Sulfate In Water 4 GM in Premix 1 BAG IVPB SCH (09:03)
[2025-04-26] MEDS: Apixaban 5 MG TAB PO SCH (09:03)
[2025-04-26] MEDS: Famotidine 20 MG TAB PO SCH (09:03)
[2025-04-26 15:17] LABS: Magnesium 2.4 mg/dL (1.6-2.6)
[2025-04-26 16:32] VITALS: BP 155/84; TEMP 97.8
== END 2025-04-26 17:00 | disposition home or self-care (01) ==
LOC: ERS 18:51 → 2NO 21:37
PROVIDERS: ADMIT Family Medicine; ATTEND Internal Medicine
DX: I49.9 Cardiac arrhythmia, unspecified (principal); I48.0 Paroxysmal atrial fibrillation; I47.19 Other supraventricular tachycardia; J44.9 Chronic obstructive pulmonary disease, unspecified; E11.9 Type 2 diabetes mellitus without complications; I10 Essential (primary) hypertension; E83.42 Hypomagnesemia; Z79.01 Long term (current) use of anticoagulants; Z88.0 Allergy status to penicillin; Z88.2 Allergy status to sulfonamides; Z88.5 Allergy status to narcotic agent; Z88.8 Allergy status to other drugs, medicaments and biological substances; Z88.1 Allergy status to other antibiotic agents; Z79.899 Other long term (current) drug therapy
CPT/HCPCS: 71045; 82962; 83036; 83735 ×2; 84484; 93005; 96374; 96376; 99285; G0378 ×3; J1200; J3475 ×2; 36415; 36416; 80053; 84443; 85025

== ENCOUNTER 2025-05-01 13:09 | Inpatient (IN) | payer MEDICARE ==
[2025-05-01 14:54] LABS: Hematocrit 41.9 % (36.0-47.0); Hemoglobin 13.9 g/dL (12.0-16.0); Mean Corpuscular Hemoglobin 25.7 pg (27.0-31.0); Mean Corpuscular Volume 77.4 fL (78.0-98.0); Platelet Count 264 10x3/uL (130-400); Red Blood Cell (RBC) Count 5.41 mill/uL (4.20-5.40); White Blood Cell (WBC) Count 12.86 10x3/uL (4.8-10.8)
[2025-05-01] MEDS ORDERED: dilTIAZem 25 MG/5 ML VIAL ONE (14:54)
[2025-05-01 15:01] LABS: ALT (SGPT) 13 U/L (Less than 34); AST (SGOT) 18 U/L (11-34); Albumin 3.4 g/dL (3.1-4.5); Alkaline Phosphatase 65 U/L (40-110); Anion Gap 15 mmol/L (10-20); BUN (Urea Nitrogen) 8 mg/dL (9.8-20.1); Bilirubin, Total 0.6 mg/dL (0.3-1.2); Calc. Creatinine Clearance 0 mL/min (70-130); Calcium 8.6 mg/dL (7.8-10.44); Carbon Dioxide 22 mmol/L (23-31); Chloride 96 mmol/L (98-107); Globulin 3.1 g/dL (2.4-3.5); Glucose 125 mg/dL (83-110); Potassium 4.7 mmol/L (3.5-5.1); Sodium 128 mmol/L (136-145)
[2025-05-01 15:06] LABS: Troponin I 0.010 ng/mL (< 0.028)
[2025-05-01 15:24] LABS: Burr Cells SLIGHT = 2-5 cells HPF (0-1); Microcytosis SLIGHT = 6-15 cells HPF (0-5); Platelet Adequacy Comment Platelets Normal; Polychromasia SLIGHT = 2-3 cells HPF (0-2); Smudge Cells 6.0 %
[2025-05-01] MEDS ORDERED: Metoprolol Tartrate 5 MG (5 mL) VIAL ONE (15:28)
[2025-05-01] MEDS ORDERED: Ondansetron PF 4 MG/2 ML Vial IVP PRN (17:14)
[2025-05-01] MEDS ORDERED: Acetaminophen 325 MG TAB PO PRN (17:14)
[2025-05-01] MEDS ORDERED: Senokot S 8.6-50 MG TAB PO PRN (17:14)
[2025-05-01] MEDS ORDERED: Calcium Carbonate 500 MG ChewTAB PO PRN (17:14)
[2025-05-01] MEDS ORDERED: Electrolyte Replacement Protocol 1 EACH FS SCH (17:15)
[2025-05-01] MEDS ORDERED: Digoxin 0.5 MG/2 ML AMP ONE (17:40)
[2025-05-01 18:04] LABS: Magnesium 1.3 mg/dL (1.6-2.6)
[2025-05-01 18:50] VITALS: BMI 23.6
[2025-05-01] MEDS: Apixaban 5 MG TAB PO SCH (20:55)
[2025-05-01] MEDS: Metoprolol Succinate XL 50 MG ER.TAB PO SCH (20:56)
[2025-05-01] MEDS: Magnesium Sulfate In Water 4 GM in Premix 1 BAG IVPB SCH (20:56)
[2025-05-02 01:44] LABS: Bacteria/HPF Rare-Few HPF (None Seen); CAUTI Indications for Culture Alt mental st,lethar; Glucose, Urine (Dipstick) Normal (Negative); Leukocyte Negative Leu/uL (Negative); Protein, Urine (Dipstick) Negative (Neg-Trace); RBC/HPF 0-3 HPF (0-3); Specific Gravity, Urine 1.004 (1.002-1.036); WBC/HPF None Seen HPF (0-3)
[2025-05-02 01:45] LABS: Urine Culture Reflex No No
[2025-05-02 04:11] LABS: #Basophils 0.08 10x3/uL (0.0-0.2); #Eosinophils 0.18 10x3/uL (0.0-0.7); #Monocytes 1.01 10x3/uL (0.11-0.59); #Neutrophils 8.07 10x3/uL (1.40-6.50); %Basophils 0.7 % (0.0-1.0); %Eosinophils 1.5 % (0.0-10.0); %Lymphocytes 21.8 % (21.0-51.0); %Monocytes 8.4 % (0.0-10.0); %Neutrophils 67.3 % (42.0-75.0); Hematocrit 43.0 % (36.0-47.0); Hemoglobin 13.4 g/dL (12.0-16.0); Mean Corpuscular Hemoglobin 24.9 pg (27.0-31.0); Mean Corpuscular Volume 79.8 fL (78.0-98.0); Platelet Count 271 10x3/uL (130-400); Red Blood Cell (RBC) Count 5.39 mill/uL (4.20-5.40); White Blood Cell (WBC) Count 11.98 10x3/uL (4.8-10.8)
[2025-05-02 04:41] LABS: ALT (SGPT) 13 U/L (Less than 34); AST (SGOT) 18 U/L (11-34); Albumin 3.4 g/dL (3.1-4.5); Alkaline Phosphatase 67 U/L (40-110); Anion Gap 14 mmol/L (10-20); BUN (Urea Nitrogen) 8 mg/dL (9.8-20.1); Bilirubin, Total 0.5 mg/dL (0.3-1.2); Calc. Creatinine Clearance 83 mL/min (70-130); Calcium 8.3 mg/dL (7.8-10.44); Carbon Dioxide 25 mmol/L (23-31); Chloride 99 mmol/L (98-107); Globulin 2.9 g/dL (2.4-3.5); Glucose 123 mg/dL (83-110); Magnesium 2.3 mg/dL (1.6-2.6); Potassium 4.6 mmol/L (3.5-5.1); Sodium 133 mmol/L (136-145)
[2025-05-02] MEDS: Famotidine 20 MG TAB PO SCH (09:55)
[2025-05-02 11:36] VITALS: BMI 23.6
[2025-05-02 11:42] VITALS: BP 129/94; TEMP 97.4
== END 2025-05-02 15:41 | disposition home or self-care (01) | DRG 309 ==
LOC: SUATTDRO 13:09 → ERS 13:09 → PCU 17:15
PROVIDERS: ADMIT Internal Medicine; ATTEND Internal Medicine
DX: I48.92 Unspecified atrial flutter (principal); E87.1 Hypo-osmolality and hyponatremia; I49.5 Sick sinus syndrome; I48.0 Paroxysmal atrial fibrillation; J44.9 Chronic obstructive pulmonary disease, unspecified; E11.9 Type 2 diabetes mellitus without complications; I10 Essential (primary) hypertension; F17.210 Nicotine dependence, cigarettes, uncomplicated; E83.42 Hypomagnesemia; E87.8 Other disorders of electrolyte and fluid balance, not elsewhere classified; F41.9 Anxiety disorder, unspecified; Z98.890 Other specified postprocedural states; Z88.0 Allergy status to penicillin; Z88.2 Allergy status to sulfonamides; Z88.5 Allergy status to narcotic agent; Z88.8 Allergy status to other drugs, medicaments and biological substances; Z79.01 Long term (current) use of anticoagulants; Z90.89 Acquired absence of other organs; Z90.710 Acquired absence of both cervix and uterus; Z95.0 Presence of cardiac pacemaker
CPT/HCPCS: 36415; 71045; 80053; 81001; 83735; 84484; 85025; 93005; 94760; 96374; 96375; J1160; J3475

== ENCOUNTER 2025-05-12 17:24 | Emergency (ER) | payer MEDICARE ==
[2025-05-12 17:49] LABS: #Basophils 0.08 10x3/uL (0.0-0.2); #Eosinophils 0.11 10x3/uL (0.0-0.7); #Monocytes 0.98 10x3/uL (0.11-0.59); #Neutrophils 8.55 10x3/uL (1.40-6.50); %Basophils 0.7 % (0.0-1.0); %Eosinophils 0.9 % (0.0-10.0); %Lymphocytes 18.8 % (21.0-51.0); %Monocytes 8.2 % (0.0-10.0); %Neutrophils 71.1 % (42.0-75.0); Hematocrit 46.4 % (36.0-47.0); Hemoglobin 15.1 g/dL (12.0-16.0); Mean Corpuscular Hemoglobin 25.7 pg (27.0-31.0); Mean Corpuscular Volume 78.9 fL (78.0-98.0); Platelet Count 339 10x3/uL (130-400); Red Blood Cell (RBC) Count 5.88 mill/uL (4.20-5.40); White Blood Cell (WBC) Count 12.02 10x3/uL (4.8-10.8)
[2025-05-12 18:02] LABS: INR-International Normal Ratio 1.3; Prothrombin Time 15.9 sec (12.0-14.7)
[2025-05-12 18:03] LABS: PTT 41.2 sec (22.9-36.1)
[2025-05-12 18:05] LABS: ALT (SGPT) 19 U/L (Less than 34); AST (SGOT) 32 U/L (11-34); Albumin 4.0 g/dL (3.1-4.5); Alkaline Phosphatase 83 U/L (40-110); Anion Gap 13 mmol/L (10-20); BUN (Urea Nitrogen) 11 mg/dL (9.8-20.1); Bilirubin, Total 0.6 mg/dL (0.3-1.2); Calc. Creatinine Clearance 0 mL/min (70-130); Calcium 9.5 mg/dL (7.8-10.44); Carbon Dioxide 23 mmol/L (23-31); Chloride 93 mmol/L (98-107); Globulin 3.2 g/dL (2.4-3.5); Glucose 134 mg/dL (83-110); Magnesium 2.0 mg/dL (1.6-2.6); Potassium 5.2 mmol/L (3.5-5.1); Sodium 124 mmol/L (136-145)
[2025-05-12] MEDS ORDERED: Acetaminophen 500 MG TAB ONE (18:10)
[2025-05-12 20:25] LABS: CAUTI Indications for Culture Dysuria,urgency,freq; Glucose, Urine (Dipstick) Normal (Negative); Leukocyte Negative Leu/uL (Negative); Protein, Urine (Dipstick) Negative (Neg-Trace); RBC/HPF 0-3 HPF (0-3); Specific Gravity, Urine 1.007 (1.002-1.036); WBC/HPF 0-3 HPF (0-3)
[2025-05-12 20:26] LABS: Bacteria/HPF 1+ HPF (None Seen); Urine Culture Reflex No No
[2025-05-12 22:57] LABS: ALT (SGPT) 17 U/L (Less than 34); AST (SGOT) 24 U/L (11-34); Albumin 3.5 g/dL (3.1-4.5); Alkaline Phosphatase 71 U/L (40-110); Anion Gap 14 mmol/L (10-20); BUN (Urea Nitrogen) 10 mg/dL (9.8-20.1); Bilirubin, Total 0.7 mg/dL (0.3-1.2); Calc. Creatinine Clearance 0 mL/min (70-130); Calcium 8.8 mg/dL (7.8-10.44); Carbon Dioxide 18 mmol/L (23-31); Chloride 102 mmol/L (98-107); Globulin 2.9 g/dL (2.4-3.5); Glucose 109 mg/dL (83-110); Potassium 4.7 mmol/L (3.5-5.1); Sodium 129 mmol/L (136-145)
== END 2025-05-13 00:15 | disposition home or self-care (01) ==
LOC: ERS 17:24
DX: S32.10XA Unspecified fracture of sacrum, initial encounter for closed fracture (principal); S00.03XA Contusion of scalp, initial encounter; N39.0 Urinary tract infection, site not specified; Z79.01 Long term (current) use of anticoagulants; W18.30XA Fall on same level, unspecified, initial encounter
CPT/HCPCS: 36415; 70450; 72125; 72131; 72192; 80053; 81001; 83735; 85025; 85610; 85730; 86850; 86900; 86901; 93005; 94760

== ENCOUNTER 2025-06-04 13:37 | Emergency (ER) | payer MEDICARE ==
[2025-06-04] MEDS ORDERED: dilTIAZem 25 MG/5 ML VIAL ONE (15:31)
[2025-06-04 16:26] LABS: #Basophils 0.06 10x3/uL (0.0-0.2); #Eosinophils 0.19 10x3/uL (0.0-0.7); #Monocytes 0.84 10x3/uL (0.11-0.59); #Neutrophils 6.23 10x3/uL (1.40-6.50); %Basophils 0.6 % (0.0-1.0); %Eosinophils 2.0 % (0.0-10.0); %Lymphocytes 21.3 % (21.0-51.0); %Monocytes 9.0 % (0.0-10.0); %Neutrophils 66.9 % (42.0-75.0); Hematocrit 42.0 % (36.0-47.0); Hemoglobin 13.9 g/dL (12.0-16.0); Mean Corpuscular Hemoglobin 27.1 pg (27.0-31.0); Mean Corpuscular Volume 82.0 fL (78.0-98.0); Platelet Count 292 10x3/uL (130-400); Red Blood Cell (RBC) Count 5.12 mill/uL (4.20-5.40); White Blood Cell (WBC) Count 9.33 10x3/uL (4.8-10.8)
[2025-06-04 16:40] LABS: ALT (SGPT) 18 U/L (Less than 34); AST (SGOT) 23 U/L (11-34); Albumin 3.4 g/dL (3.1-4.5); Alkaline Phosphatase 89 U/L (40-110); Anion Gap 17 mmol/L (10-20); BUN (Urea Nitrogen) 7 mg/dL (9.8-20.1); Bilirubin, Total 0.4 mg/dL (0.3-1.2); Calc. Creatinine Clearance 0 mL/min (70-130); Calcium 8.9 mg/dL (7.8-10.44); Carbon Dioxide 20 mmol/L (23-31); Chloride 98 mmol/L (98-107); Globulin 3.0 g/dL (2.4-3.5); Glucose 114 mg/dL (83-110); Potassium 4.7 mmol/L (3.5-5.1); Sodium 130 mmol/L (136-145)
== END 2025-06-04 18:15 | disposition home or self-care (01) ==
LOC: ERS 13:37
DX: I48.91 Unspecified atrial fibrillation (principal); I10 Essential (primary) hypertension; E11.9 Type 2 diabetes mellitus without complications; F17.210 Nicotine dependence, cigarettes, uncomplicated
CPT/HCPCS: 71045; 80053; 83880; 84484; 85025; 93005

== ENCOUNTER 2025-07-18 13:37 | Emergency (ER) | payer MEDICARE ==
[2025-07-18 14:29] LABS: #Basophils 0.07 10x3/uL (0.0-0.2); #Eosinophils 0.13 10x3/uL (0.0-0.7); #Monocytes 1.14 10x3/uL (0.11-0.59); #Neutrophils 8.49 10x3/uL (1.40-6.50); %Basophils 0.6 % (0.0-1.0); %Eosinophils 1.0 % (0.0-10.0); %Lymphocytes 20.9 % (21.0-51.0); %Monocytes 9.1 % (0.0-10.0); %Neutrophils 68.1 % (42.0-75.0); Hematocrit 45.1 % (36.0-47.0); Hemoglobin 15.1 g/dL (12.0-16.0); Mean Corpuscular Hemoglobin 27.6 pg (27.0-31.0); Mean Corpuscular Volume 82.4 fL (78.0-98.0); Platelet Count 293 10x3/uL (130-400); Red Blood Cell (RBC) Count 5.47 mill/uL (4.20-5.40); White Blood Cell (WBC) Count 12.47 10x3/uL (4.8-10.8)
[2025-07-18 14:46] LABS: ALT (SGPT) 19 U/L (Less than 34); AST (SGOT) 24 U/L (11-34); Albumin 3.5 g/dL (3.1-4.5); Alkaline Phosphatase 82 U/L (40-110); Anion Gap 19 mmol/L (10-20); BUN (Urea Nitrogen) 12 mg/dL (9.8-20.1); Bilirubin, Total 0.4 mg/dL (0.3-1.2); Calc. Creatinine Clearance 0 mL/min (70-130); Calcium 9.3 mg/dL (7.8-10.44); Carbon Dioxide 20 mmol/L (23-31); Chloride 99 mmol/L (98-107); Globulin 3.0 g/dL (2.4-3.5); Glucose 135 mg/dL (83-110); Potassium 5.4 mmol/L (3.5-5.1); Sodium 133 mmol/L (136-145)
[2025-07-18 15:43] LABS: Bacteria/HPF 1+ HPF (None Seen); CAUTI Indications for Culture Pelvic or flank pain; Glucose, Urine (Dipstick) Normal (Negative); Leukocyte 500 Leu/uL (Negative); Protein, Urine (Dipstick) Negative (Neg-Trace); Specific Gravity, Urine 1.006 (1.002-1.036); WBC/HPF Greater than 50 HPF (0-3)
[2025-07-18 15:44] LABS: Urine Culture Reflex Yes Yes
[2025-07-18] MEDS ORDERED: dilTIAZem 25 MG/5 ML VIAL ONE (16:50)
== END 2025-07-18 17:35 | disposition home or self-care (01) ==
LOC: ERS 13:37
DX: I47.19 Other supraventricular tachycardia (principal); D72.829 Elevated white blood cell count, unspecified; E11.9 Type 2 diabetes mellitus without complications; I10 Essential (primary) hypertension; F17.210 Nicotine dependence, cigarettes, uncomplicated; Z79.899 Other long term (current) drug therapy; Z79.01 Long term (current) use of anticoagulants
CPT/HCPCS: 71045; 80053; 81001; 84484; 85025; 87077; 87086; 87186; 93005; 96374

== ENCOUNTER 2025-07-23 15:07 | Inpatient (IN) | payer MEDICARE ==
[2025-07-23 17:14] LABS: #Basophils 0.11 10x3/uL (0.0-0.2); #Eosinophils 0.06 10x3/uL (0.0-0.7); #Monocytes 1.12 10x3/uL (0.11-0.59); #Neutrophils 12.96 10x3/uL (1.40-6.50); %Basophils 0.7 % (0.0-1.0); %Eosinophils 0.4 % (0.0-10.0); %Lymphocytes 12.1 % (21.0-51.0); %Monocytes 6.9 % (0.0-10.0); %Neutrophils 79.5 % (42.0-75.0); Hematocrit 47.3 % (36.0-47.0); Hemoglobin 15.4 g/dL (12.0-16.0); Mean Corpuscular Hemoglobin 27.5 pg (27.0-31.0); Mean Corpuscular Volume 84.5 fL (78.0-98.0); Platelet Count 275 10x3/uL (130-400); Red Blood Cell (RBC) Count 5.60 mill/uL (4.20-5.40); White Blood Cell (WBC) Count 16.29 10x3/uL (4.8-10.8)
[2025-07-23 18:25] LABS: INR-International Normal Ratio 1.3; Prothrombin Time 16.1 sec (12.0-14.7)
[2025-07-23 18:26] LABS: PTT 36.1 sec (22.9-36.1)
[2025-07-23 18:51] LABS: ALT (SGPT) 12 U/L (Less than 34); AST (SGOT) 20 U/L (11-34); Albumin 3.1 g/dL (3.1-4.5); Alkaline Phosphatase 64 U/L (40-110); Anion Gap 14 mmol/L (10-20); BUN (Urea Nitrogen) 12 mg/dL (9.8-20.1); Bilirubin, Total 0.5 mg/dL (0.3-1.2); Calc. Creatinine Clearance 0 mL/min (70-130); Calcium 8.6 mg/dL (7.8-10.44); Carbon Dioxide 22 mmol/L (23-31); Chloride 103 mmol/L (98-107); Globulin 2.7 g/dL (2.4-3.5); Glucose 104 mg/dL (83-110); Magnesium 1.8 mg/dL (1.6-2.6); Potassium 4.5 mmol/L (3.5-5.1); Sodium 134 mmol/L (136-145)
[2025-07-23] MEDS ORDERED: LevoFLOXacin 750 mg/D5W 150 ml Premix Bag ONE (19:18)
[2025-07-23 20:07] LABS: Bacteria/HPF 4+ HPF (None Seen); CAUTI Indications for Culture Acute Hematuria; Glucose, Urine (Dipstick) Normal (Negative); Leukocyte 500 Leu/uL (Negative); Protein, Urine (Dipstick) Negative (Neg-Trace); Specific Gravity, Urine 1.005 (1.002-1.036); WBC/HPF Greater than 50 HPF (0-3)
[2025-07-23] MEDS ORDERED: Guaifenesin DM 100-10/5 ML UDCUP PO PRN (20:07)
[2025-07-23] MEDS ORDERED: Melatonin 3 MG TAB PO PRN (20:07)
[2025-07-23 20:08] LABS: Urine Culture Reflex Yes Yes
[2025-07-23 23:30] VITALS: BMI 25.0
[2025-07-24] MEDS: Apixaban 5 MG TAB PO SCH (00:01)
[2025-07-24] MEDS: Vancomycin 1.5 GM / NS 500ML VIAL-2-BAG IVPB SCH (00:07)
[2025-07-24 03:50] LABS: #Basophils 0.10 10x3/uL (0.0-0.2); #Eosinophils 0.13 10x3/uL (0.0-0.7); #Monocytes 1.19 10x3/uL (0.11-0.59); #Neutrophils 7.45 10x3/uL (1.40-6.50); %Basophils 0.9 % (0.0-1.0); %Eosinophils 1.1 % (0.0-10.0); %Lymphocytes 21.4 % (21.0-51.0); %Monocytes 10.5 % (0.0-10.0); %Neutrophils 65.7 % (42.0-75.0); Hematocrit 39.7 % (36.0-47.0); Hemoglobin 12.7 g/dL (12.0-16.0); Mean Corpuscular Hemoglobin 27.9 pg (27.0-31.0); Mean Corpuscular Volume 87.1 fL (78.0-98.0); Platelet Count 212 10x3/uL (130-400); Red Blood Cell (RBC) Count 4.56 mill/uL (4.20-5.40); White Blood Cell (WBC) Count 11.33 10x3/uL (4.8-10.8)
[2025-07-24 04:13] LABS: Anion Gap 16 mmol/L (10-20); BUN (Urea Nitrogen) 12 mg/dL (9.8-20.1); Calc. Creatinine Clearance 73 mL/min (70-130); Calcium 7.9 mg/dL (7.8-10.44); Carbon Dioxide 17 mmol/L (23-31); Chloride 109 mmol/L (98-107); Glucose 104 mg/dL (83-110); Potassium 4.5 mmol/L (3.5-5.1); Sodium 137 mmol/L (136-145)
[2025-07-24] MEDS: Calcium Carbonate 500 MG ChewTAB PO PRN (06:18)
[2025-07-24] MEDS: Metoprolol Succinate XL 25 MG ER.TAB PO SCH (09:20)
[2025-07-24] MEDS: Acetaminophen 325 MG TAB PO PRN (22:25)
[2025-07-24] MEDS: Famotidine 20 MG TAB PO SCH (22:25)
[2025-07-24] MEDS: Ondansetron PF 4 MG/2 ML Vial IVP PRN (22:25)
[2025-07-25] MEDS: Famotidine 20 MG TAB PO SCH (08:11)
[2025-07-25] MEDS: Metoprolol Succinate XL 50 MG ER.TAB PO SCH (08:18)
[2025-07-26 03:48] LABS: #Basophils 0.08 10x3/uL (0.0-0.2); #Eosinophils 0.18 10x3/uL (0.0-0.7); #Monocytes 1.32 10x3/uL (0.11-0.59); #Neutrophils 6.25 10x3/uL (1.40-6.50); %Basophils 0.8 % (0.0-1.0); %Eosinophils 1.8 % (0.0-10.0); %Lymphocytes 22.7 % (21.0-51.0); %Monocytes 13.0 % (0.0-10.0); %Neutrophils 61.5 % (42.0-75.0); Hematocrit 39.6 % (36.0-47.0); Hemoglobin 12.5 g/dL (12.0-16.0); Mean Corpuscular Hemoglobin 27.4 pg (27.0-31.0); Mean Corpuscular Volume 86.7 fL (78.0-98.0); Platelet Count 237 10x3/uL (130-400); Red Blood Cell (RBC) Count 4.57 mill/uL (4.20-5.40); White Blood Cell (WBC) Count 10.15 10x3/uL (4.8-10.8)
[2025-07-26] MEDS: dilTIAZem ER 60 MG CAP PO SCH ×2 (11:31→20:59)
[2025-07-26] MEDS: Sodium Bicarbonate Tab 325 MG TAB PO SCH (14:34)
[2025-07-26] MEDS: Fluconazole 100 MG TAB PO SCH (19:11)
[2025-07-27 03:59] LABS: #Basophils 0.07 10x3/uL (0.0-0.2); #Eosinophils 0.22 10x3/uL (0.0-0.7); #Monocytes 0.94 10x3/uL (0.11-0.59); #Neutrophils 4.80 10x3/uL (1.40-6.50); %Basophils 0.9 % (0.0-1.0); %Eosinophils 2.7 % (0.0-10.0); %Lymphocytes 25.1 % (21.0-51.0); %Monocytes 11.6 % (0.0-10.0); %Neutrophils 59.5 % (42.0-75.0); Hematocrit 40.1 % (36.0-47.0); Hemoglobin 12.8 g/dL (12.0-16.0); Mean Corpuscular Hemoglobin 27.5 pg (27.0-31.0); Mean Corpuscular Volume 86.2 fL (78.0-98.0); Platelet Count 225 10x3/uL (130-400); Red Blood Cell (RBC) Count 4.65 mill/uL (4.20-5.40); White Blood Cell (WBC) Count 8.08 10x3/uL (4.8-10.8)
[2025-07-27 04:16] LABS: Anion Gap 11 mmol/L (10-20); BUN (Urea Nitrogen) 10 mg/dL (9.8-20.1); Calc. Creatinine Clearance 87 mL/min (70-130); Calcium 8.9 mg/dL (7.8-10.44); Carbon Dioxide 28 mmol/L (23-31); Chloride 101 mmol/L (98-107); Glucose 120 mg/dL (83-110); Potassium 4.0 mmol/L (3.5-5.1); Sodium 136 mmol/L (136-145)
[2025-07-27 05:24] LABS: Actual Bicarbonate (HCO3v) 25.8 mEq/L (22-28); Base Excess -1.6 mEq/L (-2.0 to +3.0); Calcium, Ionized (venous) 1.17 mmol/L (1.16-1.32); Chloride (VBG) 99 mmol/L (98-106); Hematocrit-VBG 42 % (36.0-47.0); Hemoglobin (Hb) 14.2 g/dL (11.7-16.1); Potassium (VBG) 3.99 mmol/L (3.70-5.30); Sodium 136 mmol/L (133-146)
[2025-07-27] MEDS: QUEtiapine 25 MG TAB PO SCH (20:48)
[2025-07-28 04:02] VITALS: TEMP 98.3
[2025-07-28 04:15] LABS: #Basophils 0.08 10x3/uL (0.0-0.2); #Eosinophils 0.31 10x3/uL (0.0-0.7); #Monocytes 1.02 10x3/uL (0.11-0.59); #Neutrophils 5.31 10x3/uL (1.40-6.50); %Basophils 0.9 % (0.0-1.0); %Eosinophils 3.4 % (0.0-10.0); %Lymphocytes 26.7 % (21.0-51.0); %Monocytes 11.1 % (0.0-10.0); %Neutrophils 57.7 % (42.0-75.0); Hematocrit 41.6 % (36.0-47.0); Hemoglobin 13.1 g/dL (12.0-16.0); Mean Corpuscular Hemoglobin 27.2 pg (27.0-31.0); Mean Corpuscular Volume 86.5 fL (78.0-98.0); Platelet Count 237 10x3/uL (130-400); Red Blood Cell (RBC) Count 4.81 mill/uL (4.20-5.40); White Blood Cell (WBC) Count 9.19 10x3/uL (4.8-10.8)
[2025-07-28 04:32] LABS: Anion Gap 16 mmol/L (10-20); BUN (Urea Nitrogen) 9 mg/dL (9.8-20.1); Calc. Creatinine Clearance 84 mL/min (70-130); Calcium 8.7 mg/dL (7.8-10.44); Carbon Dioxide 20 mmol/L (23-31); Chloride 102 mmol/L (98-107); Glucose 144 mg/dL (83-110); Potassium 3.9 mmol/L (3.5-5.1); Sodium 134 mmol/L (136-145)
[2025-07-28 07:41] VITALS: BP 132/83
[2025-07-28 10:51] LABS: Magnesium 1.5 mg/dL (1.6-2.6)
== END 2025-07-28 12:44 | disposition home or self-care (01) | DRG 640 ==
LOC: ERS 15:07 → PCU 20:11
PROVIDERS: ADMIT Internal Medicine; ATTEND Internal Medicine
DX: E86.0 Dehydration (principal); R65.11 Systemic inflammatory response syndrome (SIRS) of non-infectious origin with acute organ dysfunction; Z16.12 Extended spectrum beta lactamase (ESBL) resistance; I95.9 Hypotension, unspecified; E87.1 Hypo-osmolality and hyponatremia; E87.20 Acidosis, unspecified; R82.71 Bacteriuria; I48.91 Unspecified atrial fibrillation; E11.9 Type 2 diabetes mellitus without complications; B96.29 Other Escherichia coli [E. coli] as the cause of diseases classified elsewhere; I10 Essential (primary) hypertension; F41.9 Anxiety disorder, unspecified; F17.210 Nicotine dependence, cigarettes, uncomplicated; I48.0 Paroxysmal atrial fibrillation; Z98.890 Other specified postprocedural states; Z90.89 Acquired absence of other organs; Z90.710 Acquired absence of both cervix and uterus; Z88.5 Allergy status to narcotic agent; Z88.8 Allergy status to other drugs, medicaments and biological substances; Z88.1 Allergy status to other antibiotic agents; Z88.0 Allergy status to penicillin; Z88.2 Allergy status to sulfonamides; Z79.01 Long term (current) use of anticoagulants; Z79.899 Other long term (current) drug therapy; Z90.49 Acquired absence of other specified parts of digestive tract
CPT/HCPCS: 36415; 71045; 80048; 80053; 81001; 82805; 83605; 83735; 84145; 84484; 85025; 85610; 85730; 87040; 87077; 87086; 87186; 87428; 93005; 93010; 94760; 96361; 96365; 96375; J1956; J2183; J2185; J2405; J7030; J7120